=== PATIENT | male | born 1965 | race Caucasian/White ===

== ENCOUNTER 2019-03-07 10:39 | Outpatient (CLI) | payer MEDICARE ==
[2019-03-07] MEDS ORDERED: Gadobenate Dimeglumine 529 MG/1 ML (20ML VIAL) ONE (11:21)
--- NOTE | 2019-03-07 13:56 | MRI ---
Exam: Brain MRI with and without contrast HISTORY: Status post tumor removal in 2013. Confusion. Slow thinking. Eval for hydrocephalus. COMPARISON: 03/15/2017, 10/27/2016 FINDINGS: Stable postsurgical changes compatible with a right frontal craniotomy. There is stable enhancement o f the underlying dura, compatible with posttreatment change. No hemorrhage on the axial gradient echo sequence Stable malacic and gliotic changes involving the right frontal lobe. Stable ex vacuo dilatation of th e frontal horn of the right lateral ventricle. There is no evidence of hydrocephalus. Third and fourth ventricle are not enlarged. Additionally, the temporal horn of both lateral ventricles are not enlarged. There is paranasal sinus mucosal disease. Central arterial flow is maintained. Absent restricted diffusion Limited evaluation of the brain parenchyma on the postcontrast images due to motion. No obvious brain parenchymal pathologic enhancement. IMPRESSION: 1. Postcontrast images are limited due to motion degradation. No definite pathologic enhancement the brain parenchyma 2. Stable postoperative changes in the right frontal lobe. 3. No evidence of hydrocephalus.
== END 2019-03-07 10:40 | disposition home or self-care (01) ==
LOC: TBSIIMAG 10:39
PROVIDERS: ATTEND Neurological Surgery
DX: G91.9 Hydrocephalus, unspecified (principal)
CPT/HCPCS: 70553; A9577

== ENCOUNTER 2020-07-19 22:33 | Emergency (ER) | payer MEDICARE ==
[2020-07-19] MEDS ORDERED: Ondansetron PF 4 MG/2 ML Vial ONE ×2 (23:06→23:11)
[2020-07-19] MEDS ORDERED: Morphine 4 MG/ML VIAL ONE (23:06)
[2020-07-19] MEDS ORDERED: Ketorolac Tromethamine 30 MG/ML VIAL ONE (23:11)
[2020-07-19 23:17] LABS: #Basophils 0.1 thou/uL (0.0-0.2); #Eosinphils 0.3 thou/uL (0.0-0.7); #Lymphocytes 3.9 thou/uL (1.20-3.40); #Monocytes 1.1 thou/uL (0.11-0.59); #Neutrophils 10.6 thou/uL (1.40-6.50); %Basophils 0.6 % (0.0-1.0); %Eosinophils 2.1 % (0.0-10.0); %Lymphocytes 24.5 % (21.0-51.0); %Monocytes 6.9 % (0.0-10.0); Hemoglobin 15.7 g/dL (14.0-18.0); Mean Corpuscular HGB CONC 34.5 g/dL (32.0-36.0); Mean Corpuscular Volume 95.7 fL (78.0-98.0); Mean Platelet Volume 9.6 fL (7.4-10.4); Platelet Count 256 thou/uL (130-400); RBC Distribution Width 12.5 % (11.5-14.5); Red Blood Cell (RBC) Count 4.75 mill/uL (4.70-6.10); White Blood Cell (WBC) Count 16.1 thou/uL (4.8-10.8)
[2020-07-19 23:38] LABS: ALT (SGPT) 21 U/L (8-55); AST (SGOT) 15 U/L (5-34); Albumin 4.4 g/dL (3.5-5.0); Alkaline Phosphatase 95 U/L (40-110); Anion Gap 15 mmol/L (10-20); BUN (Urea Nitrogen) 15 mg/dL (8.4-25.7); Bilirubin, Total 0.4 mg/dL (0.2-1.2); Calc. Creatinine Clearance 0 mL/min (70-130); Calcium 10.1 mg/dL (7.8-10.44); Carbon Dioxide 25 mmol/L (22-29); Chloride 105 mmol/L (98-107); Estimated GFR-MDRD 58; Globulin 2.8 g/dL (2.4-3.5); Glucose 110 mg/dL (70-105); Lipase 30 U/L (8-78); Protein, Total 7.2 g/dL (6.0-8.3); Sodium 141 mmol/L (136-145)
[2020-07-20 00:34] LABS: Bilirubin Negative (Negative); Blood, Urine Negative (Negative); Clarity Clear (Clear); Glucose, Urine (Dipstick) Normal (Negative); Ketone, Urine Negative (Negative); Leukocyte Negative Leu/uL (Negative); Nitrite Negative (Negative); Protein, Urine (Dipstick) 10 mg/dL (Neg-Trace); Specific Gravity, Urine 1.031 (1.002-1.036); pH, Urine 5.5 (5.0-9.0)
[2020-07-20] MEDS ORDERED: HYDROcodone/Acetaminophen 5/325 mg Tablet ONE (01:43)
[2020-07-20] MEDS ORDERED: Morphine 4 MG/ML VIAL ONE (01:43)
--- NOTE | 2020-07-20 08:00 | CT ---
CT ABDOMEN AND PELVIS PERFORMED WITHOUT CONTRAST ENHANCEMENT: HISTORY: Right flank pain. COMPARISON: An 06/16/2014 study. FINDINGS: The lung bases are clear. The liver, spleen, and pancreas regions appear unremarkable. An area of altered attenuation of the g allbladder neck is suspicious for a gallstones. Ultrasound would be needed for confirmation. Right and left adrenal glands and right and left kidneys are normal in size. An exophytic hypodensit y involving the right kidney measures approximately 3.6 cm representing an interval increase in size since the previous [address] Hounsfield unit numbers would still suggest most likely a cyst . A tiny calcific focus is seen along the posterior wall. No renal calculi are seen. There is some mild right-sided hydronephrosis and the right ureter is minimally dilated. There is a punctate calc ulus at the right ureterovesical junction. There is no significant periaortic or mesenteric adenopat hy. CT OF PELVIS PERFORMED WITHOUT CONTRAST ENHANCEMENT: No adenopathy or mass. No free fluid demonstrated. Prostate calcifications are present. The append ix region appears unremarkable. IMPRESSION: 1. Mild right-sided hydronephrosis and hydroureter related to a punctate right ureterovesical juncti on calculus. 2. Increased size to exophytic hypodensity involving the right kidney, most likely a cyst but not co mpletely characterized on this exam. 3. Probable gallstone. POS: OFF
== END 2020-07-20 01:50 | disposition home or self-care (01) ==
LOC: ERS 22:33
DX: N13.2 Hydronephrosis with renal and ureteral calculous obstruction (principal); F17.210 Nicotine dependence, cigarettes, uncomplicated
CPT/HCPCS: 74176; 80053; 81003; 83690; 85025; 96374; 96375; J1885; J2270; J2405

== ENCOUNTER 2022-04-04 13:07 | Emergency (ER) | payer MEDICARE ==
[2022-04-04] MEDS ORDERED: Ketorolac Tromethamine 30 MG/ML VIAL ONE (14:02)
== END 2022-04-04 14:25 | disposition home or self-care (01) ==
LOC: ERS 13:07
DX: M54.50 Low back pain, unspecified (principal); F17.210 Nicotine dependence, cigarettes, uncomplicated; D33.2 Benign neoplasm of brain, unspecified; G91.9 Hydrocephalus, unspecified; Z87.19 Personal history of other diseases of the digestive system; Z79.899 Other long term (current) drug therapy
CPT/HCPCS: 96372; 99282; J1885